=== PATIENT | male | born 2000 | race African-American/Black ===

== ENCOUNTER 2021-04-13 17:18 | Emergency (ER) | payer BC ==
[~2021-04-13] VITALS: Ht 188 cm; Wt 81.7 kg
[2021-04-13 20:25] LABS: HEMATOCRIT 41.5 % (42.0-52.0); MCH 28.6 pg (26.0-34.0); MCHC 33.8 g/dL (28.0-37.0); MCV 84.8 fL (80.0-100.0); RBC 4.9 mil/uL (4.50-6.00); RDW 14.5 % (10.5-14.5)
[2021-04-13 20:33] LABS: ANION GAP 7 mmol/L (7-16); BUN 15 mg/dL (7-18); CALCIUM 9.1 mg/dL (8.5-10.1); CHLORIDE 105 mmol/L (98-107); CO2 29 mmol/L (21-32); CREATININE 1.2 mg/dL (0.7-1.3); GLUCOSE 102 mg/dL (74-106); POTASSIUM 3.9 mmol/L (3.5-5.1); SODIUM 141 mmol/L (136-145)
[2021-04-13 20:43] LABS: ALBUMIN 3.9 g/dL (3.4-5.0); SGOT 32 U/L (15-37); SGPT 44 U/L (16-63); TOTAL BILIRUBIN 0.4 mg/dL (0.2-1.0); TOTAL PROTEIN 7.3 g/dL (6.4-8.2); TROPONIN-I <0.06 ng/mL (<0.06)
[2021-04-13 21:44] VITALS: BP 128/74
--- NOTE | 2021-04-14 07:11 | EKG ---
[place] [address] 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: renuka : 2000 Requested By: Ruth Villagran Order Number: [id number] MD: Kobe Ventura Measurements Intervals [place] Rate: 62 P: 1 RI: 211 QRS: 82 QRSD: 88 T: 30 QT: 375 QTc: 381 Interpretive Statements Sinus rhythm Prolonged RI interval ST elev, probable normal early repol pattern Baseline wander in lead(s) II,III,aVF,V3 No previous ECG available for comparison Electronically Signed On 04-14-2021 7:11:24 CDT by Kobe Ventura [email or web address] <ELECTRONICALLY SIGNED> By: Kobe Ventura MD, [facility] 04/14/21710 15 15 Kobe Ventura MD, FACC /EPI
== END 2021-04-13 21:47 | disposition home or self-care (01) ==
LOC: ER 17:18
PROVIDERS: Nurse Practitioner Family
DX: R00.2 Palpitations (principal)